=== PATIENT | female | born 2000 ===

== ENCOUNTER 2019-10-20 06:36 | Day surgery (SDC) | payer OTHER | END 2019-10-20 16:57 | disposition home or self-care (01) | LOC: CIR.AMB 06:36 → ADM 14:30 → CIR.AMB 16:57 | DX: M71.332 Other bursal cyst, left wrist (principal) ==

== ENCOUNTER 2025-07-12 06:09 | Outpatient (CLI) | payer OTHER ==
[2025-07-12 06:46] LABS: URINE APPEARANCE Clear; URINE BACTERIA 184.7 uL (0.0-1933); URINE BILIRRUBIN Negative (NEGATIVE); URINE BLOOD Large; URINE COLOR Yellow; URINE EPITHELIAL CELLS 10.9 uL (0.0-38.8); URINE GLUCOSE Negative (NEGATIVE); URINE KETONE Negative (NEGATIVE); URINE LEUKOCYTE Negative; URINE NITRATE Negative; URINE PROTEIN Trace (NEGATIVE); URINE RBC 783.1 uL (0.0-20.8); URINE UROBILINOGEN 0.2 E.U./dl; URINE WBC 5.0 uL (0.0-23.2)
[2025-07-12 07:08] LABS: URINE CAST 0.00 uL (0.0-1.40)
[2025-07-12 07:12] LABS: BASO % 0.7 % (0.1-1.2); EOS # 0.14 (0.04-0.54); EOS % 3.3 % (0.7-7.0); LYMPH # 1.96 (1.18-3.74); LYMPH % 46.4 % (19.3-53.1); MEAN PLATELET VOLUME 8.60 fl (9.4-12.4); MONO # 0.38 (0.24-0.82); MONO % 9.0 % (4.7-12.5); NEUT # 1.71 (1.56-6.13); NEUT % 40.6 % (34.0-71.1); RED CELL DISTRIBUTION WIDTH 12.3 % (11.6-14.4)
[2025-07-12 08:01] LABS: ALT/SGPT 23.0 U/L (12-78); AST/SGOT 20.0 U/L (15-37); BILIRUBIN TOTAL 0.46 mg/dL (0.3-1.2); BUN CREA RATIO 18.0 (7.0-25.0); CHOL HDL RATIO 2.7 (0-5.0); CREATININE SERUM 0.67 mg/dL (0.55-1.02); FREE TRIODOTIRONINE 2.3 pg/ml (2.18-3.98); GFR 107.24; GLOBULINA 2.6 G/DL (2.4-3.5); GLUCOSE FASTING 87.0 mg/dL (65-100); HDL 65.0 mg/dl (40-60); LDL 101.0 mg/dl (0-130); OSMOLALITY SERUM 280.0 MOSM/KG (275-295); T4 TOTAL 6.38 UG/DL (4.8-13.9); TSH 1.83 uIU/mL (0.358-3.74); VLDL 8.0 (0-39)
[2025-07-13 11:08] LABS: ESTRADIOL SERUM 38.4 pg/mL (.)
[2025-07-13 15:07] LABS: INSULIN LEVELS 4.4 uIU/mL (2.6-24.9)
== END 2025-07-12 06:57 | disposition home or self-care (01) ==
LOC: LAB 06:09
DX: E16.2 Hypoglycemia, unspecified (principal); N39.0 Urinary tract infection, site not specified; E78.2 Mixed hyperlipidemia; E56.9 Vitamin deficiency, unspecified; E03.9 Hypothyroidism, unspecified; R97.1 Elevated cancer antigen 125 [CA 125]; R53.1 Weakness; E66.01 Morbid (severe) obesity due to excess calories; Z11.3 Encounter for screening for infections with a predominantly sexual mode of transmission